=== PATIENT | female | born 1935 | race Caucasian/White ===

== ENCOUNTER 2017-10-13 14:38 | Emergency (ER) | payer OTHER ==
[~2017-10-13] VITALS: Ht 160 cm; Wt 100.2 kg
[2017-10-13 16:29] VITALS: BP 175/93
== END 2017-10-13 16:21 | disposition home or self-care (01) ==
LOC: EME 14:38
DX: S00.83XA Contusion of other part of head, initial encounter (principal); S61.401A Unspecified open wound of right hand, initial encounter; W10.0XXA Fall (on)(from) escalator, initial encounter; I25.2 Old myocardial infarction; Z88.6 Allergy status to analgesic agent
CPT/HCPCS: 70450; 73130; 99281; 99284